=== PATIENT | female | born 1995 ===

== ENCOUNTER 2019-12-30 07:30 | Inpatient (IN) | payer MEDICAID ==
--- NOTE | 2019-12-26 17:12 | History and Physical Report ---
History of Present Illness Date of examination: 12/26/19 Chief complaint: repeat c/s History of present illness: 24 yo at 40w0d presenting for repeat c/s. No labor complaints for PIH symptoms. +FM. Past History Past Medical History: other (anemia) Past Surgical History: section (x1) Family/Genetic History: none Social history: no significant social history - Obstetrical History : 2 Para: 1 Hx # Term Pregnancies: 1 Number of Living Children: 1 Medications and Allergies Allergies Allergy/AdvReac Type Severity Reaction Status Date / Time No Known Allergies Allergy Verified 03/30/15 08:31 Home Medications Medication Instructions Recorded Confirmed Last Taken Type Docusate Sodium [Colace CAP] 100 mg PO BID #60 capsule 03/30/15 Unknown Rx Ferrous Sulfate [Feosol 325 MG tab] 325 mg PO TID #90 tablet 03/30/15 Unknown Rx Ibuprofen [Motrin 800 MG tab] 800 mg PO Q8HR PRN #90 tablet 03/30/15 Unknown Rx oxyCODONE /ACETAMINOPHEN [Percocet 1 tab PO Q6HR PRN #30 tablet 03/30/15 Unknown Rx 5/325 mg] Review of Systems All systems: negative (expect HPI) - Physical Exam Abdomen: Positive: normal appearance, normal bowel sounds, other (gravid) - Obstetrical Uterine Contraction Monitor Mode: External Uterine Contraction Pattern: Absent Results All other labs normal. Assessment and Plan - Patient Problems (1) S/P section Status: Acute Plan to address problem: --For repeat c/s. Questions solicited and answered. Consented in the chart.
[2019-12-31] MEDS ORDERED: ONDANSETRON 4 MG/2 ML INJ ONE (05:45)
[2019-12-31] MEDS ORDERED: DEXMEDETOMIDINE 200 MCG/2 ML VIAL IV ONE (05:45)
[2019-12-31] MEDS ORDERED: OXYTOCIN 20 UNIT/1000ML DRIP 20 UNITS/1,000 ML BAG IV SCH ×2 (06:00→10:00)
[2019-12-31] MEDS ORDERED: LACTATED RINGERS 1,000 ML IV SCH (06:00)
[2019-12-31] MEDS ORDERED: METOCLOPRAMIDE 10 MG/2 ML INJ IV ONE (06:02)
--- NOTE | 2019-12-31 06:06 | Anesthesia Day of Surgery ---
Anesthesia Day of Surgery - Day of Surgery Patient Examined: Yes Patient H&P Reviewed: Yes Patient is NPO: Yes Beta Blockers: No Cardiac Clearance: No Pulmonary Clearance: No En's Test: N/A
--- NOTE | 2019-12-31 06:08 | Anesthesia Consultation ---
Anesthesia Consult and Med Hx Date of service: 12/31/19 - Airway Anesthetic Teeth Evaluation: Good ROM Head & Neck: Adequate Mental/Hyoid Distance: Adequate Mallampati Class: Class II Intubation Access Assessment: Good - Pulmonary Exam CTA: Yes - Cardiac Exam Cardiac Exam: RRR - Pre-Operative Health Status ASA Pre-Surgery Classification: ASA2 Proposed Anesthetic Plan: Epidural - Pre-Anesthesia Comment Pre-Anesthesia Comments: csection no anesthesia complications - Pulmonary Hx Smoking: No Hx Asthma: No Hx Respiratory Symptoms: Yes (sore throat for 2 days) SOB: No COPD: No Home Oxygen Therapy: No Hx Pneumonia: No Hx Sleep Apnea: No - Cardiovascular System Hx Hypertension: No Hx Coronary Artery Disease: No Hx Heart Attack/AMI: No Hx Angina: No Hx Percutaneous Transluminal Coronary Angioplasty (PTCA): No Hx Cardia Arrhythmia: No Hx Pacemaker: No Hx Internal Defibrillator: No Hx Valvular Heart Disease: No Hx Heart Murmur: No Hx Peripheral Vascular Disease: No - Central Nervous System Hx Neuromuscular Disorder: No Hx Seizures: No CVA: No Hx Back Pain: No Hx Psychiatric Problems: No - Gastrointestinal Hx Ulcer: No Hx Gastroesophageal Reflux Disease: No - Endocrine Hx Renal Disease: No Hx End Stage Renal Disease: No Hx Cirrhosis: No Hx Liver Disease: No Hx Insulin Dependent Diabetes: No Hx Non-Insulin Dependent Diabetes: No Hx Thyroid Disease: No Hx Hypothyroidism: No Hx Hyperthyroidism: No - Hematic Hx Anemia: Yes Hx Sickle Cell Disease: No - Other Systems Hx Alcohol Use: No Hx Substance Use: No Hx Cancer: No Hx Obesity: No
[2019-12-31] MEDS ORDERED: ONDANSETRON 4 MG/2 ML INJ IV PRN ×2 (06:09→10:00)
[2019-12-31] MEDS ORDERED: HYDROmorphone 1 MG/1 ML INJ IV PRN (06:09)
[2019-12-31] MEDS ORDERED: NALOXONE 0.4 MG/1 ML INJ IV PRN ×2 (06:09→10:00)
[2019-12-31] MEDS ORDERED: FAMOTIDINE 20 MG/2 ML INJ IV ONE (06:12)
[2019-12-31] MEDS ORDERED: BICITRA ORAL LIQD 30ML PO ONE (06:12)
[2019-12-31 06:50] LABS: Basophils % (Auto) 0.4 % (0.0-1.8); Eosinophils % (Auto) 0.4 % (0.0-4.3); Hematocrit 23.2 % (30.3-42.9); Hemoglobin 7.1 gm/dl (10.1-14.3); Lymphocytes # (Auto) 2.4 K/mm3 (1.2-5.4); Lymphocytes % (Auto) 28.3 % (13.4-35.0); Mean Corpuscular HGB Conc 31 % (30-34); Monocytes # (Auto) 0.6 K/mm3 (0.0-0.8); Monocytes % (Auto) 7.6 % (0.0-7.3); Platelet Count 181 K/mm3 (140-440); Red Blood Count 3.73 M/mm3 (3.65-5.03)
[2019-12-31 06:54] LABS: Mean Corpuscular Volume 62 fl (79-97); Red Cell Distribution Width 21.2 % (13.2-15.2)
[2019-12-31] MEDS ORDERED: ceFAZolin/Water 2 GM/20 ML 2 GM/20 ML SYRINGE IV ONE (07:17)
[2019-12-31] MEDS ORDERED: ceFAZolin/STERILE WATER 2 GM/20 ML SYRINGE IV ONE (08:15)
--- NOTE | 2019-12-31 08:21 | Event Note ---
Date: 12/31/[address] Camarena's H&P for history details. PT here today for her scheduled RLTCS at 40.2 weeks. I believe she initially wanted to but now opted to proceed with since labor did not insue. Patient fully consented for the surgery. Risks, benefits, and alternatives were all discussed with the patient including risk of bleeding, infection, and potential for injury. Patient understands and accepts these risks. Patient agrees to proceed with surgery. All questions were answered.
[2019-12-31] MEDS ORDERED: SODIUM CHLORIDE 0.9% 500 ML 500 ML ONE (08:52)
[2019-12-31] MEDS ORDERED: PHENYLEPHRINE/NS 1,000 MCG/10 ML SYRINGE (OR USE) IV ONE (09:15)
[2019-12-31] MEDS ORDERED: ePHEDrine SULFATE 50 MG/1 ML INJ ONE (09:23)
--- NOTE | 2019-12-31 09:31 | Procedure Note ---
OB Delivery Note - Delivery Date of Delivery: 12/31/19 Surgeon: EUNICE EASLEY Estimated blood loss: other (700cc) - Section Preop diagnosis: repeat Postop diagnosis: same section procedure: section, repeat low transverse Disposition: PACU Complications: none Narrative: Indication: 24-year-old at 40 weeks and 2 days with a history of prior C- section is here for scheduled repeat low-transverse . Findings: Normal uterus, tubes and ovaries. Clear fluid. No nuchal cord. Mild intra-abdominal omental adhesions were noted. Otherwise no significant scarring was noted. Procedure: Patient taken to the operating room and prepped and draped in the usual fashion. Her old Pfannenstiel incision scar was thick and as a result was excised. Pfannenstiel skin incision was carried down to the underlying fascia. Fascia was incised and the incision was extended bilaterally. Rectus fascia dissected off the rectus muscle both superiorly and inferiorly. Peritoneum identified tented up and entered. Peritoneal incision extended superiorly and inferiorly with good visualization of the bladder. Bladder blade was placed. Uterine incision was made and the incision was extended bilaterally. The baby was delivered from in the typical vertex fashion. Baby bulb suctioned at the incision site and again after delivery. Cord was delayed clamped and cut and handed off to waiting team. The placenta was delivered spontaneously. The uterus was exteriorized and cleared of all clots and debris. Uterine incision closed with 0 Vicryl in a running locked fashion followed by a second imbricating layer of 0 Vicryl. Good hemostasis was noted. Her urine was clear. Uterus tubes and ovaries were returned to the abdominal cavity. Gutters were cleared of all clots and debris and the pelvis was well irrigated. Good hemostasis noted. Interceed placed over the uterine incision and over the lower uterine segment in the midline. Attention was turned to the rectus fascia which was reapproximated with 0 Vicryl in a running fashion. Subcutaneous tissue was irrigated and reapproximated with 2-0 Vicryl in a running fashion. Skin was closed with 4-0 Vicryl in a subcuticular fashion followed by Dermabond. The procedure was concluded at this point and the patient tolerated the procedure well. All instrument and lap counts were correct. - A at 1 minute: 9 at 5 minutes: 9 Gender: Female
--- NOTE | 2019-12-31 09:46 | Progress Note ---
Spinal Anesthesia Block - Spinal Anesthesia Block Start Time: 08:17 Stop Time: 08:23 Performed by:: SHILPA TENA Procedure: Patient IDed, H&P reviewed, all questions and concerns were answered, and consent was signed. Timeout was performed at bedside. Patient in sitting position. Sterile prep and drape was performed. [3] ml of 1% lidocaine skin wheal at L[3]- L [4]. Needle introducer advanced. 25 gauge spinal needle advanced x 2 attempts. Clear, free flowing CSF. negative blood, negative paresthesia. Spinal dose given. All needles removed. Patient tolerated procedure. performed by MODESTA Streeter
[2019-12-31] MEDS ORDERED: LANOLIN/ZINC/DIMETHICONE (LANSINOH) 7 GM TP PRN (10:00)
[2019-12-31] MEDS ORDERED: oxyCODONE /ACETAMINOPHEN 5-325MG TAB PO PRN (10:00)
[2019-12-31] MEDS ORDERED: SIMETHICONE 80 MG CHEW TAB PO PRN (10:00)
[2019-12-31] MEDS ORDERED: WITCH HAZEL/ GLYCERIN PAD TP PRN (10:00)
[2019-12-31] MEDS: LACTATED RINGERS 1,000 ML IV SCH ×2 (12:18→16:59)
[2019-12-31] MEDS: KETOROLAC 30 MG/1 ML INJ IV PRN (16:02)
--- NOTE | 2019-12-31 20:32 | Post Anesthesia Evaluation ---
- Post Anesthesia Evaluation Patient Participated: Yes Airway Patent: Yes Stable Respiratory Function: Yes Nausea/Vomiting: No Temp > 96.8F: Yes Pain Manageable: Yes Adequeate Hydration: Yes Anesthesia Complications: No Block Receding Appropriately: Yes Patient on Ventilator: No
[2019-12-31] MEDS ORDERED: MAGNESIUM HYDROXIDE (MOM) ORAL LIQD UDC PO PRN (22:00)
[2019-12-31] MEDS ORDERED: SENNOSIDES 8.6 MG TAB PO PRN (22:00)
[2020-01-01] MEDS: LACTATED RINGERS 1,000 ML IV SCH (00:06)
[2020-01-01] MEDS: KETOROLAC 30 MG/1 ML INJ IV PRN (05:18)
[2020-01-01 08:50] LABS: Hematocrit 19.6 % (30.3-42.9); Hemoglobin 5.6 gm/dl (10.1-14.3)
[2020-01-01] MEDS ORDERED: SODIUM CHLORIDE 0.9% 500 ML 500 ML IV NR (09:20)
[2020-01-01] MEDS ORDERED: diphenhydrAMINE 25 MG CAP PO NR (09:22)
--- NOTE | 2020-01-01 09:28 | Progress Note ---
Assessment and Plan - Patient Problems (1) S/P section Current Visit: No Status: Acute Plan to address problem: Routine , postoperative care. Pain control as indicated. Anticipate discharge POD2-3 (2) Acute on chronic blood loss anemia Current Visit: Yes Status: Acute Plan to address problem: Starting Hgb 7.1 with downtrend to 5.6 s/p c section. Recommended and patient agreed to transfusion. 2 units ordered. Subjective - Subjective Interval history: Patient doing well. Ambulating, voiding spontaneously, normal lochia. Mild fatigue. Pain well controlled. Baby doing well. Agreeable to indicated blood transfusion for acute on chronic blood loss anemia s/p recent c/s. Patient reports: appetite normal, voiding normally, pain well controlled, ambulating normally : doing well Objective - Vital Signs Latest vital signs: Vital Signs Temp Pulse Resp BP BP Pulse Ox 01/01/20 05:48 18 01/01/20 05:18 18 01/01/20 04:08 98.3 F 81 18 101/43 96 01/01/20 01:02 18 01/01/20 00:02 18 01/01/20 00:00 98.5 F 80 18 112/49 98 12/31/19 22:09 98.1 F 83 18 118/44 97 12/31/19 16:11 99.2 F 76 18 96/40 97 12/31/19 11:20 99.3 F 81 18 90/38 99 12/31/19 10:40 98.1 F 76 15 98/42 100 12/31/19 10:25 84 14 99/34 100 12/31/19 10:10 85 14 94/39 100 12/31/19 09:55 97 H 15 107/32 100 12/31/19 09:50 83 12 87/39 100 12/31/19 09:45 72 13 92/42 99 12/31/19 09:40 77 11 L 91/33 100 12/31/19 09:39 98.1 F 87 12 83/61 98 Intake and Output 12/31/19 01/01/20 01/01/20 23:59 07:59 15:59 Intake Total 380.590 8905.583 Output Total 700 1300 Balance 245.417 -50.417 Intake: IV 585.417 889.583 Lactated Ringers 1,000 ml 585.417 889.583 @ 125 mls/hr IV DIRECT PRIYA Rx#:[id number] Oral 120 Intake, Free Water 240 360 Output: Urine 700 1300 Indwelling Catheter 700 Void 1300 Other: Total, Intake Amount 120 Total, Output Amount 300 700 # Voids Void 1 - Exam Abdomen: Present: normal appearance, normal bowel sounds, other (fundus firm) - Labs Labs: Abnormal lab results 12/31/19 01/01/20 Range/Units 05:50 08:18 Hgb 5.6 L* (10.1-14.3) gm/dl Hct 19.6 L* (30.3-42.9) % Crossmatch See Detail
[2020-01-01] MEDS ORDERED: ACETAMINOPHEN 325 MG TAB PO NR (10:00)
--- NOTE | 2020-01-01 10:11 | Progress Note ---
Assessment and Plan POD # 1 A: S/P C/S Anemia H&H 5.6/19.6 p: Continue monitoring Consult MD safia Cedeño Subjective - Subjective Date of service: 01/01/20 Principal diagnosis: s/p c/s, Anemia Patient reports: appetite normal, voiding normally, pain well controlled, flatus, ambulating normally : doing well, nursing well Objective - Vital Signs Latest vital signs: Vital Signs Temp Pulse Resp BP BP Pulse Ox 01/01/20 07:55 98.4 F 77 18 92/40 01/01/20 05:48 18 01/01/20 05:18 18 01/01/20 04:08 98.3 F 81 18 101/43 96 01/01/20 01:02 18 01/01/20 00:02 18 01/01/20 00:00 98.5 F 80 18 112/49 98 12/31/19 22:09 98.1 F 83 18 118/44 97 12/31/19 16:11 99.2 F 76 18 96/40 97 12/31/19 11:20 99.3 F 81 18 90/38 99 12/31/19 10:40 98.1 F 76 15 98/42 100 12/31/19 10:25 84 14 99/34 100 12/31/19 10:10 85 14 94/39 100 Intake and Output 12/31/19 01/01/20 01/01/20 22:59 06:59 14:59 Intake Total 320.327 3045.583 320 Output Total 700 1300 500 Balance 245.417 -50.417 -180 Intake: IV 585.417 889.583 Lactated Ringers 1,000 ml 585.417 889.583 @ 125 mls/hr IV DIRECT PRIYA Rx#:[id number] Oral 120 320 Intake, Free Water 240 360 Output: Urine 700 1300 500 Indwelling Catheter 700 Void 1300 500 Other: Total, Intake Amount 120 320 Total, Output Amount 300 700 500 # Voids Void 1 3 - Exam Breasts: Present: normal Cardiovascular: Present: Regular rate Lungs: Present: Clear to auscultation Abdomen: Present: normal appearance, soft, normal bowel sounds, other (passing gas) Vulva: both: normal Uterus: Present: normal, firm, fundal height at umbilicus, fundal height above umbilicus Extremities: Present: normal Incision: Present: normal, dry, dressed - Labs Labs: Abnormal lab results 12/31/19 01/01/20 Range/Units 05:50 08:18 Hgb 5.6 L* (10.1-14.3) gm/dl Hct 19.6 L* (30.3-42.9) % Crossmatch See Detail
[2020-01-01] MEDS: IBUPROFEN 800 MG TAB PO PRN (17:34)
[2020-01-01 20:55] LABS: Hematocrit 26.9 % (30.3-42.9); Hemoglobin 8.5 gm/dl (10.1-14.3)
[2020-01-02] MEDS: IBUPROFEN 800 MG TAB PO PRN ×2 (05:25)
--- NOTE | 2020-01-02 11:33 | Discharge Summary ---
Providers - Providers Date of Admission: 12/31/19 05:13 Date of discharge: 01/02/20 Attending physician: FLIP HOROWITZ JR, MD Primary care physician: FLIP HOROWITZ JR, MD Hospitalization Reason for admission: section Delivery: Procedure: repeat low transverse Episiotomy: none Laceration: none Incision: dry, intact (no drainage or bleeding noted) Other procedures: none complications: none, transfusion (2 units PRBCs) Discharge diagnosis: IUP at term delivered, other (anemia) baby: female Hospital course: See admission H & P, OB operative note and PP progress notes Condition at discharge: Stable Disposition: DC-01 TO HOME OR SELFCARE - Discharge Diagnoses (1) S/P section Status: Acute (2) Acute on chronic blood loss anemia Status: Acute Plan - Discharge Medications Prescriptions: Ferrous Sulfate [Feosol 325 MG tab] 325 mg PO TID #90 tablet Ibuprofen [Motrin 800 MG tab] 800 mg PO Q6H PRN #30 tablet PRN Reason: Pain, Mild (1-3) oxyCODONE /ACETAMINOPHEN [Percocet 5/325 mg] 1 tab PO Q6H PRN #30 tablet PRN Reason: Pain, Moderate (4-6) - Provider Discharge Summary Activity: routine, no sex for 6 weeks, no heavy lifting 4 weeks, no strenuous exercise Diet: other (Iron rich diet) Instructions: routine Additional instructions: [] Smoking cessation referral if applicable(refer to patient education folder for contact #) [] Refer to [facility] Booklet Call your doctor immediately for: * Fever > 100.5 * Heavy vaginal bleeding ( >1 pad per hour) * Severe persistent headache * Shortness of breath * Reddened, hot, painful area to leg or breast * Drainage or odor from incision. * Keep incision clean and dry at all times and follow doctor's instructions regarding bathing/showering - Follow up plan Follow up: FLIP HOROWITZ JR, MD [Primary Care Provider] - 7 Days Forms: [facility] Discharge Summary
[2020-01-02 14:46] VITALS: BP 106/65
== END 2020-01-02 15:45 | disposition home or self-care (01) | DRG 765 ==
LOC: APU 12-31 05:13 → OB 12-31 11:37
PROVIDERS: ADMIT Obstetrics & Gynecology; ATTEND Obstetrics & Gynecology
PROC: 10D00Z1 Extraction of Products of Conception, Low, Open Approach (ICD-10-PCS; principal; 2019-12-31)
PROC: 30233N1 Transfusion of Nonautologous Red Blood Cells into Peripheral Vein, Percutaneous Approach (ICD-10-PCS; 2020-01-01)
DX: O34.211 Maternal care for low transverse scar from previous cesarean delivery (principal); D62 Acute posthemorrhagic anemia; Z37.0 Single live birth; O90.81 Anemia of the puerperium; Z20.828 Contact with and (suspected) exposure to other viral communicable diseases; Z3A.40 40 weeks gestation of pregnancy
CPT/HCPCS: 36415; 85014; 85018; 85025; 86592; 86850; 86900; 86901; 86920; G0378; C1765; J0690; J1885; J2370; J2405; J2765; J3490; J7040; J7120; P9016; U0003-CS